=== PATIENT | female | born 1970 ===

== ENCOUNTER 2020-04-26 15:14 | Outpatient (REF) | payer OTHER, SELFPAY ==
--- NOTE | ~2020-04-26 | MM_ITS ---
EXAMINATION: MM SCREENING DIGITAL BREAST TOMOSYNTHESIS, BILATERAL CLINICAL INFORMATION: Screening. Asymptomatic. The lifetime risk of breast cancer based on the Tyrer-Cuzick Model is 11%. COMPARISON: Mammography: 04/21/2019, 04/08/2018, 02/26/2017 TECHNIQUE: Digital breast tomosynthesis is performed in both the craniocaudal and mediolateral oblique views along with computer-aided detection (CAD). Synthesized 2D images are generated from the tomosynthesis. FINDINGS: The breasts are extremely dense, which lowers the sensitivity of mammography (ACR BI-RADS breast composition Category d). Breast tissue composition borders on heterogeneously dense. Breast parenchymal pattern is similar to prior exams. There is no significant mass or architectural abnormality or developing density. No abnormal calcifications. Skin contours are smooth. MM/MM tomosynthesis screening BI IMPRESSION: No significant changes from prior studies. ASSESSMENT: BI-RADS 1: Negative RECOMMENDATION: Routine annual mammography screening. This patient's information was entered into a reminder system with a target due date for their next mammogram.
== END 2020-04-26 15:15 | disposition home or self-care (01) ==
LOC: HO.MAMMO 15:14
PROVIDERS: PCP Internal Medicine; Visit Provider Internal Medicine
DX: Z12.31 Encounter for screening mammogram for malignant neoplasm of breast (principal)
CPT/HCPCS: 77063; 77067

== ENCOUNTER 2020-07-05 14:52 | Outpatient (REF) | payer OTHER, SELFPAY ==
[2020-07-10 00:53] LABS: HPV mRNA E6/E7 rflx Not Detected (Not Detected)
[2020-07-10 13:01] LABS: BV Int Neg Control Negative (Negative)
[2020-07-10 13:02] LABS: BV Int Pos Control Positive (Positive)
== END 2020-07-05 14:53 | disposition home or self-care (01) ==
LOC: HO.LAB 14:52
PROVIDERS: PCP Internal Medicine; Visit Provider Obstetrics & Gynecology
DX: Z01.419 Encounter for gynecological examination (general) (routine) without abnormal findings (principal); Z11.51 Encounter for screening for human papillomavirus (HPV)
CPT/HCPCS: 87480; 87510; 87624; 87660; 88142

== ENCOUNTER 2020-08-09 17:36 | Outpatient (REF) | payer OTHER, SELFPAY ==
[2020-08-10 12:47] LABS: BV Int Neg Control Negative (Negative); BV Int Pos Control Positive (Positive)
== END 2020-08-09 17:37 | disposition home or self-care (01) ==
LOC: HO.LNP 17:36
PROVIDERS: Visit Provider Internal Medicine
DX: R79.89 Other specified abnormal findings of blood chemistry (principal); N89.8 Other specified noninflammatory disorders of vagina
CPT/HCPCS: 87480; 87510; 87660

== ENCOUNTER 2020-09-20 08:32 | Outpatient (REF) | payer OTHER, SELFPAY ==
--- NOTE | ~2020-09-20 | US_ITS ---
EXAMINATION: US ABDOMEN COMPLETE CLINICAL INFORMATION: Other specified abnormal findings of blood chemistry. COMPARISON: Ultrasound abdomen complete 12/10/2016 and 09/17/2015. TECHNIQUE: Real-time imaging of the abdominal viscera. Color Doppler exam was used. FINDINGS: PANCREAS: Normal. ABDOMINAL AORTA: The proximal, mid, and distal segments are normal in caliber. INFERIOR VENA CAVA: Visualized portions are normal. LIVER: The liver is normal in size. The liver contour is normal. Parenchymal echogenicity is normal. There are multiple small simple cysts in liver. Largest measuring 1.7 cm. There is no intrahepatic biliary duct dilatation seen. GALLBLADDER: There are multiple small gallstones in the gallbladder. No gallbladder wall thickening or pericholecystic fluid. COMMON BILE DUCT: Normal in caliber measuring 0.2 cm in diameter. RIGHT KIDNEY: Normal. No hydronephrosis. No renal calculi or focal parenchymal lesions. The kidney measures 10.4 cm in maximum dimension. LEFT KIDNEY: Normal. No hydronephrosis. No renal calculi or focal parenchymal lesions. The kidney measures 10.5 cm in maximum dimension. SPLEEN: Normal. The spleen measures 8.7 cm in maximum dimension. FREE FLUID: None. US/US abdomen complete IMPRESSION: 1. Cholelithiasis. No acute change of the gallbladder wall. No bile duct dilatation. 2. Simple hepatic cysts.
== END 2020-09-20 08:33 | disposition home or self-care (01) ==
LOC: HO.US 08:32
PROVIDERS: PCP Internal Medicine; Visit Provider Internal Medicine
DX: K76.0 Fatty (change of) liver, not elsewhere classified (principal); K21.9 Gastro-esophageal reflux disease without esophagitis; R79.89 Other specified abnormal findings of blood chemistry; N89.8 Other specified noninflammatory disorders of vagina
CPT/HCPCS: 76700

== ENCOUNTER 2021-05-30 14:59 | Outpatient (REF) | payer OTHER, SELFPAY ==
--- NOTE | ~2021-05-30 | MM_ITS ---
EXAMINATION: MM SCREENING DIGITAL BREAST TOMOSYNTHESIS, BILATERAL CLINICAL INFORMATION: Screening. Asymptomatic. The lifetime risk of breast cancer based on the Tyrer-Cuzick Model is 12%. COMPARISON: Mammography: 04/26/2020, 04/21/2019, 04/08/2018, 02/26/2017 TECHNIQUE: Digital breast tomosynthesis is performed in both the craniocaudal and mediolateral oblique views along with computer-aided detection (CAD). Synthesized 2D images are generated from the tomosynthesis. FINDINGS: The breasts are heterogeneously dense, which may obscure small masses (ACR BI-RADS breast composition Category c). Breast tissue composition borders on extremely dense. Parenchymal pattern is similar to prior studies. No developing density. There are no significant masses, abnormal calcifications, or other abnormalities. MM/MM tomosynthesis screening BI IMPRESSION: No mammographic evidence of malignancy. ASSESSMENT: BI-RADS 1: Negative RECOMMENDATION: Routine annual mammography screening. This patient's information was entered into a reminder system with a target due date for their next mammogram.
== END 2021-05-30 15:00 | disposition home or self-care (01) ==
LOC: HO.MAMMO 14:59
PROVIDERS: Visit Provider Internal Medicine
DX: Z12.31 Encounter for screening mammogram for malignant neoplasm of breast (principal)
CPT/HCPCS: 77063; 77067

== ENCOUNTER 2021-07-11 14:40 | Outpatient (REF) | payer OTHER, SELFPAY ==
[2021-07-12 13:52] LABS: BV Int Neg Control Negative (Negative); BV Int Pos Control Positive (Positive)
== END 2021-07-11 14:41 | disposition home or self-care (01) ==
LOC: HO.LAB 14:40
PROVIDERS: PCP Internal Medicine; Visit Provider Advanced Practice Midwife
DX: Z01.411 Encounter for gynecological examination (general) (routine) with abnormal findings (principal); N89.8 Other specified noninflammatory disorders of vagina; L29.2 Pruritus vulvae
CPT/HCPCS: 87480; 87510; 87660

== ENCOUNTER 2021-08-15 16:29 | Outpatient (REF) | payer OTHER, SELFPAY | END 2021-08-15 16:30 | disposition home or self-care (01) | LOC: HO.LAB 16:29 | PROVIDERS: Visit Provider Advanced Practice Midwife | DX: L29.2 Pruritus vulvae (principal); N89.8 Other specified noninflammatory disorders of vagina | CPT/HCPCS: 56605; 88305; 88312 ==

== ENCOUNTER 2022-06-05 14:41 | Outpatient (REF) | payer OTHER, SELFPAY ==
--- NOTE | ~2022-06-05 | MM_ITS ---
EXAMINATION: MM SCREENING DIGITAL BREAST TOMOSYNTHESIS, BILATERAL CLINICAL INFORMATION: Screening. Asymptomatic. The lifetime risk of breast cancer based on the Tyrer-Cuzick Model is 11.5%. COMPARISON: Mammography: May 30, 2021 and studies dating back to January 11, 2016 TECHNIQUE: Digital breast tomosynthesis is performed in both the craniocaudal and mediolateral oblique views along with computer-aided detection (CAD). Synthesized 2D images are generated from the tomosynthesis. FINDINGS: The breasts are heterogeneously dense, which may obscure small masses (ACR BI-RADS breast composition Category c). There are no significant masses, abnormal calcifications, or other abnormalities. MM/MM tomosynthesis screening BI IMPRESSION: No significant changes ASSESSMENT: BI-RADS 1: Negative RECOMMENDATION: Routine annual mammography screening. This patient's information was entered into a reminder system with a target due date for their next mammogram.
== END 2022-06-05 14:42 | disposition home or self-care (01) ==
LOC: HO.MAMMO 14:41
PROVIDERS: PCP Internal Medicine; Visit Provider Internal Medicine
DX: Z12.31 Encounter for screening mammogram for malignant neoplasm of breast (principal)
CPT/HCPCS: 77063; 77067

== ENCOUNTER 2022-07-14 07:36 | Outpatient (REF) | payer OTHER, SELFPAY ==
[2022-07-14 07:46] LABS: MANUAL DIFF FLAG NO
[2022-07-14 08:28] LABS: Basophils Percent Auto 0.6 % (0-2); Eosinophils Absolute Auto 0.1 X10*3/uL (0.0-0.4); Eosinophils Percent Auto 1.7 % (0-4); Hemoglobin 13.5 g/dl (12.0-16.0); Lymphocytes Absolute Auto 1.8 X10*3/uL (1.2-4.9); Lymphocytes Percent Auto 50.3 % (20-40); Mean Corpuscular HGB Conc 33.8 g/dl (31.0-35.0); Mean Corpuscular Hemoglobin 29.6 pg (27.0-33.0); Mean Corpuscular Volume 87.7 fL (80.0-98.0); Mean Platelet Volume 9.6 fL (9.4-12.3); Monocytes Absolute Auto 0.4 X10*3/uL (0.1-1.2); Monocytes Percent Auto 10.1 % (2-11); Neutrophils Absolute Auto 1.3 x10*3/uL (2.0-8.3); Neutrophils Percent Auto 37.3 % (45-73); Platelet Count 222 X10*3/uL (160-400); Red Blood Count 4.56 X10*6/uL (4.20-5.50); Red Cell Distribution Width 12.7 % (11.0-16.0); White Blood Count 3.6 X10*3/uL (4.8-10.8)
[2022-07-14 09:01] LABS: Alanine Aminotransferase 24 U/L (0-31); Albumin Level 4.1 g/dL (3.5-5.0); Alkaline Phosphatase 90 U/L (39-117); Anion Gap 11 (12-20); Aspartate Amino Transferase 23 U/L (5-31); Bilirubin Total 0.9 mg/dL (0.0-1.0); Blood Urea Nitrogen 9 mg/dL (9-16); Calcium 9.2 mg/dL (8.4-10.2); Carbon Dioxide 25 mmol/L (22-29); Chloride 110 mmol/L (96-108); Cholesterol 175 mg/dL; Estimated Glomerular Filt Rate > 60; Glucose Random 110 mg/dL (60-115); HDL Cholesterol 64 mg/dL; LDL Cholesterol Calculated 100 mg/dl; Sodium 142 mmol/L (135-145); Total Protein 6.7 g/dL (6.5-8.0); Triglycerides 57 mg/dL
[2022-07-14 09:31] LABS: Folate 16.3 ng/mL (> or = 4.0); Free T4 (Free Thyroxine) 1.01 ng/dL (0.71-1.85); Thyroid Stimulating Hormone 3.15 uIU/mL (0.32-4.0); Vitamin B12 526 pg/mL (200-900); Vitamin D 25-OH Total 39.2 ng/mL (>30)
== END 2022-07-14 07:37 | disposition home or self-care (01) ==
LOC: HO.LAB 07:36
PROVIDERS: PCP Internal Medicine; Visit Provider Internal Medicine
DX: K21.9 Gastro-esophageal reflux disease without esophagitis (principal); E78.00 Pure hypercholesterolemia, unspecified; E55.9 Vitamin D deficiency, unspecified
CPT/HCPCS: 36415; 80053; 80061; 82306; 82607; 82746; 84439; 84443; 85025

== ENCOUNTER 2022-07-17 15:22 | Outpatient (REF) | payer OTHER, SELFPAY ==
--- NOTE | ~2022-07-17 | XR_ITS ---
EXAMINATION: XR SHOULDER, RIGHT CLINICAL INFORMATION: Sprain COMPARISON: None available. TECHNIQUE: AP external rotation, Grashey, scapular Y, and axillary views of the right shoulder. FINDINGS: The bones and soft tissues are normal. No fracture. Glenohumeral and acromioclavicular alignment is anatomic with normal joint space. No abnormal soft tissue calcifications. XR/XR shoulder RT min 2V IMPRESSION: Normal right shoulder.
== END 2022-07-17 15:23 | disposition home or self-care (01) ==
LOC: HO.XRAY 15:22
PROVIDERS: PCP Internal Medicine; Visit Provider Internal Medicine
DX: S43.401A Unspecified sprain of right shoulder joint, initial encounter (principal); X58.XXXA Exposure to other specified factors, initial encounter; Y93.9 Activity, unspecified; Y92.9 Unspecified place or not applicable; Y99.9 Unspecified external cause status
CPT/HCPCS: 73030

== ENCOUNTER 2022-10-13 13:58 | Outpatient (AMB) | payer OTHER, SELFPAY ==
--- NOTE | 2022-10-13 14:02 | MHC.OFFVIS ---
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 Scribed for PAULA Morrell by Mary Saunders medical support specialist, on 10/13/2022 at 2:25 pm EST. Incendiary Powder Mixer Required: No Information Interpreted: non-clinical & clinical Laborer High Density Press: Laborer High Density Press Present (Manda) Allergies No Known Allergies Allergy (Verified 10/13/22 14:08) Is last menstrual period known: No Post menopausal: Yes Patient : No HPI HPI Comments History of Present Illness Details She is a postmenopausal woman presenting for annual exam. Patient admits she tries to eat a healthy diet including Calcium and Vitamin D. She stays active with exercise. Denies vaginal itching and irritation. Reports using Rx hydrocortisone daily on a small patch on vulvar for itch/irritation due to lichen sclerosus and if she does not use it the area starts burning. Denies family hx of breast, colon and ovarian cancer. Last pap smear 07/05/20. Last mammogram 06/05/22. Not UTD on colonoscopy. [facility] Medical History Cholelithiasis Fatty liver GERD (gastroesophageal reflux disease) Lichen sclerosus Migraines Shingles Surgical History No pertinent past surgical history Family History Son Acute depression Mother Diabetes Brother Diabetes Other Mental health disorder Substance use disorder Social History Housing: House Alcohol intake: never Patient Tobacco Use Status: Never used Tobacco e-Cigarette/Vaping Use: Never Used Second Hand Smoke Exposure: No service: No Current occupational status: employed Gender identity: Female Cognitive needs: No Hearing needs: No Vision needs: Yes Female Reproductive History Menstrual control method: none Total pregnancies: 0 Number of Living Children: 0 Date of last pap smear: 07/05/20 (neg pap and hpv) Date of Mammogram: 06/05/22 (Birad 1) Physical Exam Vital Signs: Last Vital Signs BP 130/80 10/13/22 14:03 BMI result Body Mass Index 31.3 Const General: cooperative, healthy appearing, no acute distress, well developed and alert Orientation/consciousness: patient oriented x3 HEENT Head: Yes normal to inspection Eyes General: appearance normal, both eyes and all related structures Neck Neck: Yes normal visual inspection Thyroid: Thyroid normal Chest Chest palpation & inspection: normal inspection of the chest Breast/axilla inspection: normal inspection of the breasts (no puckering, dimpling, peau de orange, retraction, discharge, masses) Breast/axilla palpation: normal palpation of the breasts Resp Effort & Inspection: normal respiratory effort GI Inspection: Yes normal to inspection Palpation (GI): Soft to palpation (to palpation) Rectal Exam - Female: deferred General: Yes bladder normal to inspection External Female Exam: normal external appearance and normal appearance of the urethra Speculum Exam - Vagina: normal appearance of the vagina, normal palpation and normal vaginal discharge Speculum Exam - Cervix: normal appearance of the cervix and normal palpation Bimanual exam- vagina & uterus: normal palpation and normal palpation Bimanual Exam- Adnexa, other: normal adnexae and no masses Skin General skin exam: no rashes or lesions noted Neuro General: patient oriented x3 Cognition (Neuro): normal cognition Extrem General: Yes normal to inspection Psych Attitude: cooperative Thought process: Normal thought process present Assessment & Plan Assessment & Plan (1) Encounter for well woman exam: Code(s): Z01.419 - Encounter for gynecological examination (general) (routine) without abnormal findings Plan: Discussed: Current recommendations for pap smears per ASCCP guidelines. Breast awareness and periodic self breast exams. Encouraged yearly mammograms. Maintaining a healthy lifestyle including a well balanced diet including Calcium and Vitamin D and routine exercise. Contact office with any PMB. All of her questions and concerns were addressed to the best of my ability RTO in 1 year for AG. (2) Lichen sclerosus: Code(s): L90.0 - Lichen sclerosus et atrophicus Plan: Discussed topical steroid overuse and rebound symptoms. Taper dose to be started as directed with refill. If any burning apply cool cloth to area when irritated, and wear cotton underwear. Rx with instructions sent to pharmacy. Contact office if symptoms worsen, follow up prn. (3) Vaginal irritation: Code(s): N89.8 - Other specified noninflammatory disorders of vagina Medications: New hydrocortisone valerate 0.2% apply a thin coat to the area daily at bedtime for one week, then every other day for two weeks, then twice a week, then only twice a week prn 1 appl topical BEDTIME 45 grams 2RF rash Discontinued hydrocortisone valerate 0.2% Discontinued Reason: Duplicate 1 appl topically twice per week PRN; 45 grams 3RF rash Coding Level of Care Code Est Pt Prev Care 40-64y(92581) Diagnoses Encounter for well woman exam Z01.419 Lichen sclerosus L90.0 Vaginal irritation N89.8
[2022-10-13 14:03] VITALS: BP 130/80; BMI 31.3
== END 2022-10-13 14:37 | disposition home or self-care (01) ==
LOC: HO.HWS 13:58
PROVIDERS: PCP Internal Medicine; Visit Provider Advanced Practice Midwife
DX: Z01.419 Encounter for gynecological examination (general) (routine) without abnormal findings (principal); L90.0 Lichen sclerosus et atrophicus; N89.8 Other specified noninflammatory disorders of vagina
CPT/HCPCS: 99396

== ENCOUNTER → 2022-10-13 13:58 | Outpatient (BNVA) | payer OTHER, SELFPAY | PROVIDERS: PCP Internal Medicine; Visit Provider Advanced Practice Midwife ==

== ENCOUNTER 2022-12-18 15:00 | Outpatient (RCR) | payer OTHER, SELFPAY ==
--- NOTE | 2022-08-14 16:11 | MHC.PT.EP ---
[facility] [place] Office [place] Office [place] Office [address] Chalino Rice [address] [phone] F: [phone] F: [phone] F: [phone] F: [phone] Physical Therapy Plan of Care Date of Evaluation: Date of Surgery: Diagnosis: RIGHT shoulder sprain (MD Dx) RIGHT subacromial impingement syndrome (PT Dx) Assessment: Patient is a pleasant 52 y.o. 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 Ariel Harding MD, with Dx of RIGHT shoulder sprain. PT diagnosis is RIGHT shoulder subacromial impingement syndrome. Patient impairments include pain, poor posture, tight shoulder capsule, limited ROM, mild weakness. Patient current functional limitations are reach behind back, reach too far forward, reaching out to the side, reaching overhead.Patient will benefit from skilled PT to address aforementioned impairments and functional limitations to meet established goals. Frequency and Duration: The patient will be seen 1-2x/week for 4 weeks Short Term Goals: 2 weeks Patient demonstrates consistency and independence with HEP to self manage symptoms. Patient presents with improved posture in sitting without cues for neutral cervical spine and shoulders. 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 Patient presents with increased R shoulder abduction 5/5 to be able to reach items at work without pain or difficulty. Treatment Plan: Modalities to reduce pain, spasms and effusion. Manual therapy to restore motion and function. Therapeutic exercise to improve strength and flexibility. Neuromuscular re-education for posture and balance. Therapeutic activities to return to functional activities of daily living. Electronically signed by: Candace Terry, PT, DPT Please sign and return to therapist. Thank you for your referral.
--- NOTE | 2023-01-21 10:41 | MHC.PT.DC ---
[facility] [place] Office [place] Office [place] Office [address] Chalino Rice [address] [phone] F: [phone] F: [phone] F: [phone] F: [phone] Physical Therapy Discharge Report Diagnosis: RIGHT shoulder sprain (MD Dx) RIGHT subacromial impingement syndrome (PT Dx) Date of Surgery: Date of Evaluation: 08/14/22 Date of Discharge: 12/18/22 Treatments to Date: 15 Cancellations to Date: No Shows to Date: Discharge Status: Achieved Goals Improved Function Independent with HEP Discharge Summary: Pt has met all goals at this time, has demonstrated compliance with home program and good mechanics throughout all exercises. Decreased overall pain levels with ADLs and decreased difficulty with home/work activities. D/C I with HEP today Electronically signed by: Candace Terry, PT, DPT Please sign and return to therapist. Thank you for your referral.
== END 2023-01-21 10:42 | disposition home or self-care (01) ==
LOC: HO.PT 15:00
PROVIDERS: PCP Internal Medicine; Visit Provider Internal Medicine
DX: S43.401D Unspecified sprain of right shoulder joint, subsequent encounter (principal)
CPT/HCPCS: 97014; 97035; 97110; 97140; 97161; 97530

== ENCOUNTER 2023-06-11 15:00 | Outpatient (REF) | payer BC, SELFPAY | END 2023-06-11 15:01 | disposition home or self-care (01) | LOC: HO.MAMMO 15:00 | PROVIDERS: PCP Internal Medicine; Visit Provider Internal Medicine | DX: Z12.31 Encounter for screening mammogram for malignant neoplasm of breast (principal) | CPT/HCPCS: 77063; 77067 ==

== ENCOUNTER → 2023-06-11 15:00 | Outpatient (BNV) | payer BC, SELFPAY | PROVIDERS: PCP Internal Medicine; Visit Provider Radiology Diagnostic Radiology | DX: Z12.31 Encounter for screening mammogram for malignant neoplasm of breast (principal) | CPT/HCPCS: 77063; 77067 ==

== ENCOUNTER 2023-09-03 16:05 | Outpatient (AMB) | payer BC, SELFPAY ==
[2023-09-03 16:15] VITALS: BP 118/68; PULSE 69; O2SAT 98; BMI 33.7
--- NOTE | 2023-09-03 16:15 | A.OFFPC_ITS ---
Vital Signs 09/03/23 16:15 Height 5 ft 6 in Weight 209 lb BMI 33.7 BP 118/68 Blood Pressure Location Lt brachial Position Sitting Pulse 69 Pulse Source Pulse Oximeter Pulse Oximetry (%) 98 Oxygen Delivery Method Room Air Intake Visit Reasons: pe Allergies No Known Allergies Allergy (Verified 09/03/23 16:15) Medication List - Last Reconciled 09/03/23 by Ban Travis MD calcium carbonate 500 mg PO BID cholecalciferol (vitamin D3) 10 mcg PO DAILY cyanocobalamin (vitamin B-12) 500 mcg PO DAILY hydrocortisone valerate 0.2% 1 appl topical BEDTIME multivitamin (Daily Multi-Vitamin tablet) 1 tab PO DAILY omega 4-zyr-xea-fish oil 60-90-500 mg (Fish Oil) 2 caps PO DAILY Tobacco use date assessed: 09/03/23 Dental Screening Dental Screen Date: 09/03/23 Did you have a dental visit in the last 12 months?: Yes Did you have a dental problem in the last 6 months where you did not have access to dental care?: No Was dental information given to patient?: Patient has dentist HPI pe HPI Details 53-year-old obese female(15 lb weight ga in) with a history of fatty liver GERD and impaired glucose tolerance last seen in August 2022. Patient is here for physical exam mammogram is up-to-date colonoscopy up-to-date 2018 [facility] Medical History Cholelithiasis Fatty liver GERD (gastroesophageal reflux disease) Lichen sclerosus Migraines Shingles Surgical History No pertinent past surgical history Family History (Updated 09/03/23 @ 16:30 by Ban Travis MD) Son Acute depression Mother Diabetes Brother Diabetes Maternal Grandfather No problems noted. Maternal Uncle CVA (cerebral vascular accident) Other Mental health disorder Substance use disorder Social History Housing: House Alcohol intake: never Patient Tobacco Use Status: Never used Tobacco Tobacco use type: Cigarette e-Cigarette/Vaping Use: Never Used Second Hand Smoke Exposure: No service: No Current occupational status: employed Gender identity: Female Cognitive needs: No Hearing needs: No Vision needs: Yes Questionnaire PHQ-9 Over the last 2 weeks, how often have you been bothered by any of the following problems? 1. Little interest or pleasure in doing things: not at all 2. Feeling down, depressed, or hopeless: not at all 3. Trouble falling or staying asleep, or sleeping too much: not at all 4. Feeling tired or having little energy: not at all 5. Poor appetite or overeating: not at all 6. Feeling bad about yourself - or that you are a failure or have let yourself or your family down: not at all 7. Trouble concentrating on things, such as reading the newspaper or watching television: not at all 8. Moving or speaking so slowly that other people could have noticed. Or the opposite - being so fidgety or restless that you have been moving around a lot more than usual: not at all 9. Thoughts that you would be better off or of hurting yourself in some way: not at all Total score: 0 Depression Screening Interpretation: Negative Depression Screening Done: Yes Source: Developed by Drs. Mejia Garcia, Shania Kinney, Anurag Aleman and colleagues, with an educational stas from [employer]. Thrive Questionnaire Date Thrive assessed: 09/03/23 I am a: Patient What is your living situation today?: I have a steady place to live Within the past 12 months, did the food you bought not last and you didn't have the money to get more?: Never true Within the past 12 months, did you worry whether your food would run out before you got money to buy more?: Never true Do you have trouble paying for medicines?: No Do you have trouble getting transportation to medical appointments?: No Do you have trouble paying your heating and electricity bill?: No Do you have trouble taking care of your child, family member or friend?: No Do you have trouble with day-to-day activities such as bathing, preparing meals, shopping, managing finances, etc.?: No Are you currently unemployed and looking for a job?: No Are you interested in more education?: No Currently or been in a relationship where the following occur: No concerns reported THRIVE Score: 0 AUDIT C Alcohol Use Questionnaire (AUDIT-C) 1. How often do you have a drink containing alcohol?: Never Total Score: 0 TITA-7 AMB Questionnaire TITA-7 Date TITA - 7 assessed: 09/03/23 Feeling nervous, anxious, or on edge: 0 = Not at all Not being able to stop or control worryin = Not at all Worrying too much about different things: 0 = Not at all Trouble relaxin = Not at all Being so restless that it is hard to sit still: 0 = Not at all Becoming easily annoyed or irritable: 0 = Not at all Feeling afraid as if something awful might happen: 0 = Not at all Total TITA-7 score (0-4 normal; 5-9 mild; 10-14 moderate; 15-21 severe): 0 Source: Developed by Drs. Mejia Garcia, Shania Kinney, Anurag Aleman and colleagues, with an educational stas from [employer]. Review of Systems Const Denies poor appetite and Denies weakness Eyes Denies no additional complaints ENT Reports Normal hearing present, Denies dizziness, Denies nasal congestion, Denies tinnitus and Denies sore throat Card Denies chest pain, Denies syncope, Denies rapid heart rate and Denies dyspnea Resp Denies cough and Denies dyspnea GI Denies change in stool character, Reports constipation, Denies diarrhea, Denies nausea and Denies vomiting Denies urinary frequency, Denies difficulty voiding and Denies dysuria Neuro Reports Normal hearing present, Denies confusion, Denies dizziness, Denies syncope and Denies weakness Psych Denies confusion Physical exam (Primary Care) Vital Signs: Last Vital Signs Pulse 69 09/03/23 16:15 BP 118/68 09/03/23 16:15 Pulse Ox 98 09/03/23 16:15 Oxygen Delivery Method Room Air 09/03/23 16:15 BMI result Body Mass Index 33.7 Tobacco/Smoking Status: Tobacco use Status Tobacco use date assessed 09/03/23 09/03/23 16:20 Patient Tobacco Use Status Never used Tobacco 09/03/23 16:20 Tobacco use type Cigarette 09/03/23 16:20 e-Cigarette/Vaping Use Never Used 09/03/23 16:20 PHQ-9: PHQ-9 Score PHQ-9: Total score 0 09/03/23 16:20 Depression Screening Interpretation: Negative Thrive Assessment: Date of Thrive Assessment Date Thrive assessed 09/03/23 09/03/23 16:20 Currently or been in a relationship where the following occur: No concerns reported Const General: No confusion Orientation/consciousness: No confusion HENMT Head: Yes normocephalic Ears: external ears normal and TM's normal bilaterally Face and sinus: Yes normal facial exam Mouth: moist mucous membranes Throat: Yes tonsils normal Eyes Conjunctivae: conjunctivae normal Pupils: Equal, round and reactive pupils present and Pupil accommodation reflex normal Direct Ophthalmoscopy: normal light reflex Neck Neck: No lymphadenopathy Thyroid: Thyroid normal Chest Chest palpation & inspection: normal inspection of the chest Resp Effort & Inspection: normal respiratory effort and no audible wheezes Auscultation: clear to auscultation bilaterally, no crackles, no wheezes and lung sounds not diminished Cardio Rate: regular rate Rhythm: regular rhythm Peripheral pulses: radial pulses present and dorsalis pedis present GI Palpation (GI): no masses Auscultation: normal bowel sounds and normoactive bowel sounds Rectal Exam - Female: deferred Skin General skin exam: no rashes or lesions noted Rashes: no rashes Neuro General: No confusion Cranial nerves: Yes Equal, round and reactive pupils present and Yes Normal hearing present Cognition (Neuro): normal cognition Gait exam (Neuro): Normal gait present Motor exam (neuro): 5/5 motor strength present throughout Deep tendon reflexes (DTR's): Right brachioradialis reflex intensity grade: 2+, Left brachioradialis reflex intensity grade: 2+, Right patellar reflex intensity grade: 2+ and Left patellar reflex intensity grade: 2+ Extrem General: No edema Assessment and Plan Assessment & Plan (1) Annual physical exam: Code(s): Z00.00 - Encounter for general adult medical examination without abnormal findings Plan: Patient is advised to eat healthy, keep well hydrated, keep active and have adequate sleep. (2) GERD (gastroesophageal reflux disease): Code(s): K21.9 - Gastro-esophageal reflux disease without esophagitis Qualifiers: Esophagitis presence: without esophagitis Qualified Code(s): K21.9 - Gastro-esophageal reflux disease without esophagitis Plan: Avoid the foods that causes that usually spicy foods, tomato products, juices, coffee, soda and foods that your sensitive to. After eating do not lie down, allow 3-4 hours before in lie down. And keep the head of bed above 30 degrees to avoid the acid from going up. (3) Fatty liver: Code(s): K76.0 - Fatty (change of) liver, not elsewhere classified Plan: Low-fat diet and exercise (4) Impaired glucose tolerance: Code(s): R73.02 - Impaired glucose tolerance (oral) Plan: Decrease the amount of carbohydrate intake, pasta, bread, rice and potatoes are all sugar and that is aside from all the sweet stuff, remember that fruits are good but they are Sweet also. (5) Obesity (BMI 30-39.9): Code(s): E66.9 - Obesity, unspecified Plan: Diet and exercise Orders: Orders Complete Blood Count Auto Diff Today R73.02 - Impaired glucose tolerance (oral) Comprehensive Met. Panel Today R73.02 - Impaired glucose tolerance (oral) Free T4 (Free Thyroxine) Today R73.02 - Impaired glucose tolerance (oral) Vitamin D 25-OH Total Today R73.02 - Impaired glucose tolerance (oral) Hemoglobin A1c Today R73.02 - Impaired glucose tolerance (oral) Thyroid Stimulating Hormone Today R73.02 - Impaired glucose tolerance (oral) Liver Panel Today R73.02 - Impaired glucose tolerance (oral), R79.89 - Other specified abnormal findings of blood chemistry Vitamin B12 and Folate Today R73.02 - Impaired glucose tolerance (oral) Coding Level of Care Code Est Pt Prev Care 40-64y(12939) Diagnoses Annual physical exam Z00.00 Gastroesophageal reflux disease without esophagitis K21.9 Esophagitis presence: without esophagitis Fatty liver K76.0 Impaired glucose tolerance R73.02 Obesity (BMI 30-39.9) E66.9
== END 2023-09-03 16:45 | disposition home or self-care (01) ==
PROVIDERS: PCP Internal Medicine; Visit Provider Internal Medicine
DX: Z00.00 Encounter for general adult medical examination without abnormal findings (principal); K21.9 Gastro-esophageal reflux disease without esophagitis; Z68.33 Body mass index [BMI] 33.0-33.9, adult; E66.9 Obesity, unspecified; K76.0 Fatty (change of) liver, not elsewhere classified; R73.02 Impaired glucose tolerance (oral)
CPT/HCPCS: 99396

== ENCOUNTER 2023-09-06 07:24 | Outpatient (REF) | payer BC, SELFPAY ==
[2023-09-06 07:40] LABS: MANUAL DIFF FLAG NO
[2023-09-06 08:08] LABS: Basophils Percent Auto 0.7 % (0-2); Eosinophils Absolute Auto 0.1 X10*3/uL (0.0-0.4); Eosinophils Percent Auto 2.2 % (0-4); Hematocrit 42.2 % (37.0-47.0); Hemoglobin 14.2 g/dl (12.0-16.0); Lymphocytes Absolute Auto 1.9 X10*3/uL (1.2-4.9); Lymphocytes Percent Auto 47.3 % (20-40); Mean Corpuscular HGB Conc 33.6 g/dl (31.0-35.0); Mean Corpuscular Hemoglobin 29.7 pg (27.0-33.0); Mean Corpuscular Volume 88.3 fL (80.0-98.0); Mean Platelet Volume 9.9 fL (9.4-12.3); Monocytes Absolute Auto 0.3 X10*3/uL (0.1-1.2); Monocytes Percent Auto 8.3 % (2-11); Neutrophils Absolute Auto 1.7 x10*3/uL (2.0-8.3); Neutrophils Percent Auto 41.5 % (45-73); Platelet Count 230 X10*3/uL (160-400); Red Blood Count 4.78 X10*6/uL (4.20-5.50); Red Cell Distribution Width 12.7 % (11.0-16.0); White Blood Count 4.1 X10*3/uL (4.8-10.8)
[2023-09-06 08:14] LABS: Estimated Average Glucose 114 mg/dL; Hemoglobin A1c % 5.6 % (<6.0)
[2023-09-06 08:40] LABS: Alanine Aminotransferase 22 U/L (0-31); Albumin Level 4.3 g/dL (3.5-5.0); Alkaline Phosphatase 117 U/L (39-117); Anion Gap 11 (12-20); Aspartate Amino Transferase 22 U/L (5-31); Bilirubin Direct 0.2 mg/dL (0.0-0.5); Bilirubin Total 0.4 mg/dL (0.0-1.0); Blood Urea Nitrogen 10 mg/dL (9-16); Calcium 8.9 mg/dL (8.4-10.2); Carbon Dioxide 26 mmol/L (22-29); Chloride 109 mmol/L (96-108); Estimated Glomerular Filt Rate > 60; Glucose Random 119 mg/dL (60-115); Potassium 4.4 mmol/L (3.3-5.1); Sodium 142 mmol/L (135-145); Total Protein 7.2 g/dL (6.5-8.0)
[2023-09-06 08:59] LABS: Free T4 (Free Thyroxine) 0.88 ng/dL (0.71-1.85); Thyroid Stimulating Hormone 3.32 uIU/mL (0.32-4.0); Vitamin D 25-OH Total 44.6 ng/mL (>30)
[2023-09-06 09:03] LABS: Folate 13.2 ng/mL (> or = 4.0); Vitamin B12 1302 pg/mL (200-900)
== END 2023-09-06 07:25 | disposition home or self-care (01) ==
LOC: HO.LAB 07:24
PROVIDERS: PCP Internal Medicine; Visit Provider Internal Medicine
DX: R73.02 Impaired glucose tolerance (oral) (principal); R79.89 Other specified abnormal findings of blood chemistry
CPT/HCPCS: 36415; 80053; 82248; 82306; 82607; 82746; 83036; 84439; 84443; 85025

== ENCOUNTER 2023-10-18 16:49 | Outpatient (AMB) | payer BC, SELFPAY ==
--- NOTE | 2023-10-18 16:51 | A.OFFPC_ITS ---
Intake Visit Reasons: COVID Pos Allergies No Known Allergies Allergy (Verified 10/18/23 16:51) Tobacco use date assessed: 09/03/23 Dental Screening Dental Screen Date: 09/03/23 HPI COVID Pos HPI Details 53-year-old obese female with a history of GERD and fatty liver and impaired glucose tolerance coming in through Telehealth for an acute problem. had sore throat and run down but today patient had no sense of taste and smell and so did the test and was positive [facility] Medical History Cholelithiasis Fatty liver GERD (gastroesophageal reflux disease) Lichen sclerosus Migraines Shingles Surgical History No pertinent past surgical history Family History (Updated 09/03/23 @ 16:30 by Ban Travis MD) Son Acute depression Mother Diabetes Brother Diabetes Maternal Grandfather No problems noted. Maternal Uncle CVA (cerebral vascular accident) Other Mental health disorder Substance use disorder Social History Housing: House Alcohol intake: never Patient Tobacco Use Status: Never used Tobacco Tobacco use type: Cigarette e-Cigarette/Vaping Use: Never Used Second Hand Smoke Exposure: No service: No Current occupational status: employed Gender identity: Female Cognitive needs: No Hearing needs: No Vision needs: Yes Questionnaire Thrive Questionnaire Date Thrive assessed: 09/03/23 TITA-7 AMB Questionnaire TITA-7 Date TITA - 7 assessed: 09/03/23 Source: Developed by Drs. Mejia Garcia, Shania Kinney, Anurag Aleman and colleagues, with an educational stas from [employer]. Physical exam (Primary Care) Tobacco/Smoking Status: Tobacco use Status Tobacco use date assessed 09/03/23 10/18/23 16:51 Patient Tobacco Use Status Never used Tobacco 10/18/23 16:51 Tobacco use type Cigarette 10/18/23 16:51 e-Cigarette/Vaping Use Never Used 10/18/23 16:51 Thrive Assessment: Date of Thrive Assessment Date Thrive assessed 09/03/23 10/18/23 16:51 Telehealth Telehealth Telehealth Platform: Telephone Location of provider rendering services: practice address Location of patient: address on file Patient Identification confirmed using: Name, : Yes Telehealth method: voice only Patient verbally consented to treatment: Yes Patient verbally consented to billing insurance company: Yes Patient informed of any privacy concerns related to visit: Yes Minutes spent on Phone/Video with Pt.: 15 Assessment and Plan Assessment & Plan (1) Impaired glucose tolerance: Code(s): R73.02 - Impaired glucose tolerance (oral) Plan: Decrease the amount of carbohydrate intake, pasta, bread, rice and potatoes are all sugar and that is aside from all the sweet stuff, remember that fruits are good but they are Sweet also. (2) COVID-19 virus infection: Comment: 10/18/2023 Code(s): U07.1 - COVID-19 Plan: Antiviral has been sent. For the sore throat can take Cepacol lozenges, discussed about Delsym to help with dry cough so she can rest and advised to increase oral fluids. Patient also can take Tylenol for chills and fever. Concern though of coverage as she heard the insurance might not be covering it. Coding Level of Care Code Tele Est Pt Level 3 (24938) Diagnoses Impaired glucose tolerance R73.02 COVID-19 virus infection U07.1
== END 2023-10-18 17:09 | disposition home or self-care (01) ==
LOC: HO.HMGH 16:49
PROVIDERS: PCP Internal Medicine; Visit Provider Internal Medicine
DX: U07.1 COVID-19 (principal); R73.02 Impaired glucose tolerance (oral)
CPT/HCPCS: 99442

== ENCOUNTER 2023-12-31 14:37 | Outpatient (AMB) | payer BC, SELFPAY ==
--- NOTE | 2023-12-31 14:43 | MHC.OFFVIS ---
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 She is doing well with no concerns. Needs refill on her topical cortisone for lichen sclerosus treatment. Attempting to eat a healthy diet with calcium and vitamin D and stays active with exercise. Currently not sexually active. STI testing offered; she declined. Last pap smear; 2020. Last mammogram; 2023. Colonoscopy is UTD. Denies any family history of breast, ovarian or colon cancer. [facility] Medical History Lichen sclerosus Shingles Migraines Fatty liver Cholelithiasis GERD (gastroesophageal reflux disease) Surgical History No pertinent past surgical history Family History Son Acute depression Mother Diabetes Brother Diabetes Maternal Grandfather No problems noted. Maternal Uncle CVA (cerebral vascular accident) Other Mental health disorder Substance use disorder Social History Housing: House Alcohol intake: never Patient Tobacco Use Status: Never used Tobacco Tobacco use type: Cigarette e-Cigarette/Vaping Use: Never Used Second Hand Smoke Exposure: No service: No Current occupational status: employed Gender identity: Female Cognitive needs: No Hearing needs: No Vision needs: Yes Female Reproductive History Menstrual Menopause type: natural Total pregnancies: 0 Date of last pap smear: 07/05/20 (neg pap and hpv) Date of Mammogram: 06/11/23 (Birad 1) Review of Systems Const All systems reviewed & are unremarkable except as noted in HPI and below Reports as per HPI Eyes Reports no additional complaints ENT Reports no additional complaints Card Reports no additional complaints Resp Reports no additional complaints GI Reports as per HPI and Reports no additional complaints Reports as per HPI Musc Reports no additional complaints Skin/Breast Reports as per HPI Neuro Reports no additional complaints Psych Reports no additional complaints Endo Reports no additional complaints Jalen/Lymph Reports no additional complaints Aller/Immun Reports no additional complaints Physical Exam Vital Signs: BMI result Body Mass Index 32.0 Const General: cooperative, healthy appearing, no acute distress, well developed and alert Orientation/consciousness: patient oriented x3 HEENT Head: Yes normal to inspection Eyes General: appearance normal, both eyes and all related structures Neck Neck: Yes normal visual inspection Thyroid: Thyroid normal Chest Chest palpation & inspection: normal inspection of the chest and other (no puckering, dimpling, peau de orange, retraction, discharge, masses) Breast/axilla inspection: normal inspection of the breasts Breast/axilla palpation: normal palpation of the breasts Resp Effort & Inspection: normal respiratory effort GI Inspection: Yes normal to inspection Palpation (GI): Soft to palpation Rectal Exam - Female: deferred General: Yes bladder normal to palpation External Female Exam: normal external appearance and normal appearance of the urethra Speculum Exam - Vagina: normal appearance of the vagina, normal palpation, normal vaginal discharge and vagina atrophic Speculum Exam - Cervix: normal appearance of the cervix and normal palpation Bimanual exam- vagina & uterus: normal bimanual exam, normal palpation, uterine size normal, bladder normal to palpation, normal palpation and non-tender Bimanual Exam- Adnexa, other: no masses Skin General skin exam: no rashes or lesions noted Rashes: no rashes Neuro General: patient oriented x3 Cognition (Neuro): normal cognition Extrem General: Yes normal to inspection Psych Attitude: cooperative Thought process: Normal thought process present Assessment & Plan Assessment & Plan (1) Encounter for well woman exam with routine gynecological exam: Code(s): Z01.419 - Encounter for gynecological examination (general) (routine) without abnormal findings Category: Medical Plan Discussed: Current recommendations for pap smears per ASCCP guidelines. Breast awareness, periodic self breast exams and yearly mammogram. Maintain a healthy lifestyle, well balanced diet including Calcium 1,200 mg and Vitamin D 600 IU daily, and routine exercise. Contact the office with any postmenopausal bleeding. Patient verbalizes understanding and agrees to the plan of care. She was given opportunity to ask questions and all questions were answered to the best of my ability. 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 This note is constructed using voice recognition software. While every effort has been made to ensure accuracy, truckload checker errors may have been included. Medications: Refilled hydrocortisone valerate 0.2% apply a thin coat to the area daily at bedtime for one week, then every other day for two weeks, then twice a week, then only twice a week prn 1 appl topical BEDTIME 45 grams 2RF rash Coding Level of Care Code Est Pt Prev Care 40-64y(53595) Diagnoses Encounter for well woman exam with routine gynecological exam Z01.419
[2023-12-31 14:44] VITALS: BMI 32.0
== END 2023-12-31 15:30 | disposition home or self-care (01) ==
PROVIDERS: PCP Internal Medicine; Visit Provider Advanced Practice Midwife
DX: Z01.419 Encounter for gynecological examination (general) (routine) without abnormal findings (principal)
CPT/HCPCS: 99396

== ENCOUNTER → 2023-12-31 14:37 | Outpatient (BNVA) | payer BC, SELFPAY | PROVIDERS: PCP Internal Medicine; Visit Provider Advanced Practice Midwife ==

== ENCOUNTER 2024-06-16 14:56 | Outpatient (REF) | payer BC, SELFPAY | END 2024-06-16 14:57 | disposition home or self-care (01) | LOC: HO.MAMMO 14:56 | PROVIDERS: PCP Internal Medicine; Visit Provider Internal Medicine | DX: Z12.31 Encounter for screening mammogram for malignant neoplasm of breast (principal) | CPT/HCPCS: 77063; 77067 ==

== ENCOUNTER → 2024-06-16 15:30 | Outpatient (BNV) | payer BC, SELFPAY | PROVIDERS: PCP Internal Medicine; Visit Provider Internal Medicine | DX: Z12.31 Encounter for screening mammogram for malignant neoplasm of breast (principal) | CPT/HCPCS: 77063; 77067 ==

== ENCOUNTER 2024-09-08 14:50 | Outpatient (AMB) | payer BC, SELFPAY ==
[2024-09-08 14:58] VITALS: BP 114/70; PULSE 92; TEMP 36.3; O2SAT 97; BMI 33.0
--- NOTE | 2024-09-08 14:58 | MHC.PC.OV ---
Vital Signs 09/08/24 14:58 Height 5 ft 6 in Weight 204 lb 4 oz BMI 33.0 BP 114/70 Blood Pressure Location Lt brachial Position Sitting Pulse 92 Pulse Source Pulse Oximeter Temp 97.3 F Temp Source Temporal Artery Scan Pulse Oximetry (%) 97 Oxygen Delivery Method Room Air Intake Visit Reasons: Annual Exam Allergies No Known Allergies Allergy (Verified 09/08/24 15:00) Medication List - Last Reconciled 09/08/24 by Ban Travis MD calcium carbonate 500 mg PO BID cholecalciferol (vitamin D3) 10 mcg PO DAILY cyanocobalamin (vitamin B-12) 500 mcg PO DAILY hydrocortisone valerate 0.2% 1 appl topical BEDTIME PRN 21 days multivitamin (Daily Multi-Vitamin tablet) 1 tab PO DAILY Tobacco use date assessed: 09/08/24 Dental Screening Dental Screen Date: 09/08/24 Did you have a dental visit in the last 12 months?: Yes Did you have a dental problem in the last 6 months where you did not have access to dental care?: No Was dental information given to patient?: Patient has dentist [facility] Medical History Lichen sclerosus Shingles Migraines Fatty liver Cholelithiasis GERD (gastroesophageal reflux disease) Surgical History No pertinent past surgical history Family History Son Acute depression Mother Diabetes Brother Diabetes Maternal Grandfather No problems noted. Maternal Uncle CVA (cerebral vascular accident) Other Mental health disorder Substance use disorder Social History Housing: House Alcohol intake: never Patient Tobacco Use Status: Never used Tobacco Tobacco use type: Cigarette e-Cigarette/Vaping Use: Never Used Second Hand Smoke Exposure: No service: No Current occupational status: employed Gender identity: Female Cognitive needs: No Hearing needs: No Vision needs: Yes Questionnaire PHQ-9 Over the last 2 weeks, how often have you been bothered by any of the following problems? 1. Little interest or pleasure in doing things: not at all 2. Feeling down, depressed, or hopeless: not at all 3. Trouble falling or staying asleep, or sleeping too much: not at all 4. Feeling tired or having little energy: not at all 5. Poor appetite or overeating: not at all 6. Feeling bad about yourself - or that you are a failure or have let yourself or your family down: not at all 7. Trouble concentrating on things, such as reading the newspaper or watching television: not at all 8. Moving or speaking so slowly that other people could have noticed. Or the opposite - being so fidgety or restless that you have been moving around a lot more than usual: not at all 9. Thoughts that you would be better off or of hurting yourself in some way: not at all Total score: 0 Depression Screening Interpretation: Negative Depression Screening Done: Yes 18867 - PHQ-9 Billing: Yes Source: Developed by Drs. Mejia Garcia, Shania Kinney, Anurag Aleman and colleagues, with an educational stas from [email or web address]. Thrive Questionnaire Date Thrive assessed: 09/08/24 I am a: Patient What is your living situation today?: I have a steady place to live Within the past 12 months, did the food you bought not last and you didn't have the money to get more?: Never true Within the past 12 months, did you worry whether your food would run out before you got money to buy more?: Never true Do you have trouble paying for medicines?: No Do you have trouble getting transportation to medical appointments?: No Do you have trouble paying your heating and electricity bill?: No Do you have trouble taking care of your child, family member or friend?: No Do you have trouble with day-to-day activities such as bathing, preparing meals, shopping, managing finances, etc.?: No Are you currently unemployed and looking for a job?: No Are you interested in more education?: No Please select the resources that you would like help with: None Currently or been in a relationship where the following occur: No concerns reported THRIVE Score: 0 AUDIT C Alcohol Use Questionnaire (AUDIT-C) 1. How often do you have a drink containing alcohol?: Never 3. How often do you have six or more drinks on one occasion?: Never Total Score: 0 TITA-7 AMB Questionnaire TITA-7 Date TITA - 7 assessed: 09/08/24 Feeling nervous, anxious, or on edge: 0 = Not at all Not being able to stop or control worryin = Not at all Worrying too much about different things: 0 = Not at all Trouble relaxin = Not at all Being so restless that it is hard to sit still: 0 = Not at all Becoming easily annoyed or irritable: 0 = Not at all Feeling afraid as if something awful might happen: 0 = Not at all Total TITA-7 score (0-4 normal; 5-9 mild; 10-14 moderate; 15-21 severe): 0 Source: Developed by Drs. Mejia Garcia, Shania Kinney, Anurag Aleman and colleagues, with an educational stas from [email or web address]. TITA-7 Assessment Billing TITA-7 Assessment Tool: TITA-7 Assessment 73960 Review of Systems Const Denies poor appetite and Denies weakness Eyes Denies no additional complaints ENT Reports Normal hearing present, Denies dizziness, Denies nasal congestion, Denies tinnitus and Denies sore throat Card Denies chest pain, Denies syncope, Denies rapid heart rate and Denies dyspnea Resp Denies cough and Denies dyspnea GI Denies change in stool character, Reports constipation, Denies diarrhea, Denies nausea and Denies vomiting Denies urinary frequency, Denies difficulty voiding and Denies dysuria Neuro Reports Normal hearing present, Denies confusion, Denies dizziness, Denies syncope and Denies weakness Psych Denies confusion Physical exam (Primary Care) Vital Signs: Last Vital Signs Temp 97.3 F 09/08/24 14:58 Pulse 92 09/08/24 14:58 BP 114/70 09/08/24 14:58 Pulse Ox 97 09/08/24 14:58 Oxygen Delivery Method Room Air 09/08/24 14:58 BMI result Body Mass Index 33.0 Tobacco/Smoking Status: Tobacco use Status Tobacco use date assessed 09/08/24 09/08/24 15:01 Patient Tobacco Use Status Never used Tobacco 09/08/24 15:01 Tobacco use type Cigarette 09/08/24 15:01 e-Cigarette/Vaping Use Never Used 09/08/24 15:01 PHQ-9: PHQ-9 Score PHQ-9: Total score 0 09/08/24 15:30 Depression Screening Interpretation: Negative Thrive Assessment: Date of Thrive Assessment Date Thrive assessed 09/08/24 09/08/24 15:01 Currently or been in a relationship where the following occur: No concerns reported Const General: No confusion Orientation/consciousness: No confusion HENMT Head: Yes normocephalic Ears: external ears normal and TM's normal bilaterally Face and sinus: Yes normal facial exam Mouth: moist mucous membranes Throat: Yes tonsils normal Eyes Conjunctivae: conjunctivae normal Pupils: Equal, round and reactive pupils present and Pupil accommodation reflex normal Direct Ophthalmoscopy: normal light reflex Neck Neck: No lymphadenopathy Thyroid: Thyroid normal Chest Chest palpation & inspection: normal inspection of the chest Resp Effort & Inspection: normal respiratory effort and no audible wheezes Auscultation: clear to auscultation bilaterally, no crackles, no wheezes and lung sounds not diminished Cardio Rate: regular rate Rhythm: regular rhythm Peripheral pulses: radial pulses present and dorsalis pedis present GI Palpation (GI): no masses Auscultation: normal bowel sounds and normoactive bowel sounds Rectal Exam - Female: deferred Skin General skin exam: no rashes or lesions noted Rashes: no rashes Neuro General: No confusion Cranial nerves: Yes Equal, round and reactive pupils present and Yes Normal hearing present Cognition (Neuro): normal cognition Gait exam (Neuro): Normal gait present Motor exam (neuro): 5/5 motor strength present throughout Deep tendon reflexes (DTR's): Right brachioradialis reflex intensity grade: 2+, Left brachioradialis reflex intensity grade: 2+, Right patellar reflex intensity grade: 2+ and Left patellar reflex intensity grade: 2+ Extrem General: No edema Coding Level of Care Code Est Pt Prev Care 40-64y(42936) Diagnoses Annual physical exam Z00.00 Cholelithiasis K80.20 Obesity (BMI 30-39.9) E66.9 Impaired glucose tolerance R73.02 Colon cancer screening Z12.11 Additional Codes TITA-7 Assessment Billing - TITA-7 Assessment Tool: TITA-7 Assessment 39666 ([id number]) PHQ-9 - 34572 - PHQ-9 Billing: Yes ([id number]) Assessment & Plan Assessment & Plan (1) Annual physical exam: Code(s): Z00.00 - Encounter for general adult medical examination without abnormal findings Category: Medical Plan: Patient is advised to eat healthy, keep well hydrated, keep active and have adequate sleep. (2) Cholelithiasis: Comment: August 2020 Code(s): K80.20 - Calculus of gallbladder without cholecystitis without obstruction Category: Medical Plan: Low-fat diet and exercise (3) Obesity (BMI 30-39.9): Code(s): E66.9 - Obesity, unspecified Category: Medical Plan: Diet and exercise (4) Impaired glucose tolerance: Code(s): R73.02 - Impaired glucose tolerance (oral) Category: Medical Plan: Decrease the amount of carbohydrate intake, pasta, bread, rice and potatoes are all sugar and that is aside from all the sweet stuff, remember that fruits are good but they are Sweet also. (5) Colon cancer screening: Code(s): Z12.11 - Encounter for screening for malignant neoplasm of colon Category: Medical Plan History of Present Illness The patient is a 54-year-old female presenting for a physical exam and wellness visit. She has a history of obesity, with a recent 6-pound weight gain since December 2023. Her medical history includes hepatic steatosis, gastroesophageal reflux disease (GERD), and cholelithiasis. The patient underwent a colonoscopy in November 2018, which revealed serrated polyps. She was advised to follow up in five years, but a referral was made to ensure appropriate follow-up due to the polyp findings. Her last blood work in August 2023 showed normal blood count, electrolytes, renal function, and liver function tests. However, her blood glucose was mildly elevated, though her hemoglobin A1c remained normal. Her LDL cholesterol was 64 mg/dL in 2022, and her vitamin B12, folic acid, vitamin D, and thyroid levels were within normal limits. The patient denies any new diagnoses or surgeries since her last visit. She does not consume alcohol, smoke cigarettes, or use recreational drugs. She reports occasional dizziness when lying down, which resolves quickly, and occasional heartburn. Health Maintenance - Mammogram up to date as of May 2024 - Colonoscopy performed in November 2018 with polyp findings, follow-up recommended in five years - Tetanus vaccination up to date - Blood work in August 2023 showed normal blood count, electrolytes, renal function, and liver function tests - Blood glucose mildly elevated, normal hemoglobin A1c - LDL cholesterol of 64 mg/dL in 2022 - Vitamin B12, folic acid, vitamin D, and thyroid levels within normal limits Social History - Denies alcohol consumption, smoking, and recreational drug use - Reports occasional dizziness when lying down, resolving quickly - Reports occasional heartburn Review of Systems - General: Denies fever, chills, or weight loss - Cardiovascular: Denies chest pain, palpitations, or syncope - Respiratory: Denies dyspnea, cough, or wheezing - Gastrointestinal: Reports occasional heartburn; denies nausea, vomiting, or constipation - Neurological: Reports occasional dizziness when lying down, resolving quickly; denies headaches or balance issues - Genitourinary: Denies dysuria, hematuria, or nocturia Physical Exam General: Cooperative, healthy appearing, comfortable, no acute distress and well developed Orientation: Patient oriented x3 Limitations: No limitations Head: Normal to inspection Ears: Hearing grossly normal bilaterally Nose: Normal external nose present Face and sinus: Normal facial exam Eyes: Appearance normal, both eyes and all related structures Neck: Normal visual inspection and Yes full ROM Respiratory: Normal respiratory effort and able to speak in complete sentences. Clear to auscultation bilaterally Cardiovascular: Regular rate and rhythm. Normal S1 and S2 GI: Normal to inspection. Soft to palpation and nontender Skin: No rashes or lesions noted, but patient has noticed a few more spidery veins on legs Neuro: Patient oriented x3 Extremities: Normal to inspection, but patient has noticed a few more spidery veins on legs Results - Labs: Normal blood count, electrolytes, renal function, and liver function tests as of August 2023 - Labs: Mildly elevated blood glucose, normal hemoglobin A1c - Labs: LDL cholesterol of 64 mg/dL in 2022 - Labs: Vitamin B12, folic acid, vitamin D, and thyroid levels within normal limits Plan The patient will continue with her current wellness plan, which includes a no-fat diet and regular exercise to manage her weight and hepatic steatosis. A referral to a bat carrier is made to follow up on the serrated colonic polyp findings from the 2019 colonoscopy. Blood work will be repeated to monitor her mildly elevated blood glucose levels, with a focus on fasting blood glucose. The patient is advised to maintain her current medication regimen, including calcium, vitamin D, and supplements. She is encouraged to inquire about the shingles vaccine at her pharmacy, as it is recommended for her age group. The patient is reminded to prop her legs up when sitting to manage varicose veins and to consider compression stockings if necessary. Patient was informed and verbally consented to the use of an ambient scribe for clinic note documentation during this visit. Discussion Notes During the visit, I discussed the importance of maintaining a no-fat diet and regular exercise to manage the patient's weight and hepatic steatosis. We reviewed the need for a follow-up with a bat carrier regarding the serrated colonic polyp findings from her 2019 colonoscopy. I recommended repeating blood work to monitor her mildly elevated blood glucose levels, emphasizing the importance of fasting blood glucose. I advised her to maintain her current medication regimen, including calcium, vitamin D, and B12 supplements. We discussed the shingles vaccine, and I encouraged her to inquire about it at her pharmacy. I also provided guidance on managing varicose veins by propping her legs up when sitting and considering compression stockings if necessary. Patient Instructions - Continue with a no-fat diet and regular exercise. - Follow up with a bat carrier for the serrated colonic polyp. - Repeat blood work to monitor blood glucose levels. - Maintain current medication regimen, including calcium, vitamin D, and B12 supplements. - Inquire about the shingles vaccine at the pharmacy. - Prop legs up when sitting to manage varicose veins and consider compression stockings if necessary. Orders: Orders Thyroid Stimulating Hormone Today R73.02 - Impaired glucose tolerance (oral) Vitamin B12 and Folate Today R73.02 - Impaired glucose tolerance (oral) Hemoglobin A1c Today R73.02 - Impaired glucose tolerance (oral) Comprehensive Met. Panel Today R73.02 - Impaired glucose tolerance (oral) Complete Blood Count Auto Diff Today R73.02 - Impaired glucose tolerance (oral) Lipid Panel Today E78.00 - Pure hypercholesterolemia, unspecified, R73.02 - Impaired glucose tolerance (oral) Vitamin D 25-OH Total Today R73.02 - Impaired glucose tolerance (oral) Free T4 (Free Thyroxine) Today R73.02 - Impaired glucose tolerance (oral) Referrals Gastroenterology Referral Z12.11 - Encounter for screening for malignant neoplasm of colon
== END 2024-09-08 15:45 | disposition home or self-care (01) ==
LOC: HO.HMCH 14:51
PROVIDERS: PCP Internal Medicine; Visit Provider Internal Medicine
DX: Z00.00 Encounter for general adult medical examination without abnormal findings (principal); K80.20 Calculus of gallbladder without cholecystitis without obstruction; E66.9 Obesity, unspecified; Z68.33 Body mass index [BMI] 33.0-33.9, adult; R73.02 Impaired glucose tolerance (oral); Z12.11 Encounter for screening for malignant neoplasm of colon

== ENCOUNTER → 2024-09-08 14:50 | Outpatient (BNVA) | payer BC, SELFPAY | PROVIDERS: PCP Internal Medicine; Visit Provider Internal Medicine | DX: Z00.00 Encounter for general adult medical examination without abnormal findings (principal); K80.20 Calculus of gallbladder without cholecystitis without obstruction; E66.9 Obesity, unspecified; Z68.33 Body mass index [BMI] 33.0-33.9, adult; R73.02 Impaired glucose tolerance (oral); Z13.31 Encounter for screening for depression; Z13.39 Encounter for screening examination for other mental health and behavioral disorders | CPT/HCPCS: 96127 ==

== ENCOUNTER 2025-01-10 08:04 | Outpatient (AMB) | payer BC, SELFPAY ==
--- NOTE | 2025-01-10 08:22 | A.OFFVIS_ITS ---
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 Currently not sexually active. Denies any vaginal dryness or irritation. Attempting to eat a healthy diet with calcium and vitamin D and stays active with exercise. Last pap smear; 2020, negative. Last mammogram; 2024. Denies any family history of breast, ovarian or colon cancer. [facility] Medical History Lichen sclerosus Shingles Migraines Fatty liver Cholelithiasis GERD (gastroesophageal reflux disease) Surgical History No pertinent past surgical history Family History Son Acute depression Mother Diabetes Brother Diabetes Maternal Grandfather No problems noted. Maternal Uncle CVA (cerebral vascular accident) Other Mental health disorder Substance use disorder Social History Housing: House Alcohol intake: never Patient Tobacco Use Status: Never used Tobacco Tobacco use type: Cigarette e-Cigarette/Vaping Use: Never Used Second Hand Smoke Exposure: No service: No Current occupational status: employed Gender identity: Female Cognitive needs: No Hearing needs: No Vision needs: Yes Female Reproductive History Menstrual Total pregnancies: 0 Date of last pap smear: 07/05/20 (neg pap and hpv) Date of Mammogram: 06/16/24 (Birad 1) Review of Systems Const All systems reviewed & are unremarkable except as noted in HPI and below Reports as per HPI Eyes Reports no additional complaints ENT Reports no additional complaints Card Reports no additional complaints Resp Reports no additional complaints GI Reports as per HPI and Reports no additional complaints Reports as per HPI Musc Reports no additional complaints Skin/Breast Reports as per HPI Neuro Reports no additional complaints Psych Reports no additional complaints Endo Reports no additional complaints Jalen/Lymph Reports no additional complaints Aller/Immun Reports no additional complaints Physical Exam Vital Signs: Last Vital Signs BP 110/74 01/10/25 08:23 BMI result Body Mass Index 33.1 Const General: cooperative, healthy appearing, no acute distress, well developed and alert Orientation/consciousness: patient oriented x3 HEENT Head: Yes normal to inspection Eyes General: appearance normal, both eyes and all related structures Neck Neck: Yes normal visual inspection Thyroid: Thyroid normal Chest Chest palpation & inspection: normal inspection of the chest and other (no puc kering, dimpling, peau de orange, retraction, discharge, masses) Breast/axilla inspection: normal inspection of the breasts Breast/axilla palpation: normal palpation of the breasts Resp Effort & Inspection: normal respiratory effort GI Inspection: Yes normal to inspection Palpation (GI): Soft to palpation Rectal Exam - Female: deferred General: Yes bladder normal to palpation External Female Exam: normal external appearance and normal appearance of the urethra Speculum Exam - Vagina: normal appearance of the vagina, normal palpation, normal vaginal discharge and vagina atrophic Speculum Exam - Cervix: normal appearance of the cervix and normal palpation Bimanual exam- vagina & uterus: normal bimanual exam, normal palpation, uterine size normal, bladder normal to palpation, normal palpation and non-tender Bimanual Exam- Adnexa, other: no masses Skin General skin exam: no rashes or lesions noted Rashes: no rashes Neuro General: patient oriented x3 Cognition (Neuro): normal cognition Extrem General: Yes normal to inspection Psych Attitude: cooperative Thought process: Normal thought process present Assessment & Plan Assessment & Plan (1) Encounter for well woman exam with routine gynecological exam: Code(s): Z01.419 - Encounter for gynecological examination (general) (routine) without abnormal findings Category: Medical Plan Discussed: Current recommendations for pap smears per ASCCP guidelines. Breast awareness, periodic self breast exams and yearly mammogram. Maintain a healthy lifestyle, well balanced diet including Calcium 1,200 mg and Vitamin D 600 IU daily, and routine exercise. Contact the office with any postmenopausal bleeding. Patient verbalizes understanding and agrees to the plan of care. She was given opportunity to ask questions and all questions were answered to the best of my ability. RTO in 1 year for annual rn palliative care exam. This note is constructed using voice recognition software. While every effort has been made to ensure accuracy, administrative support coordinator errors may have been included. Coding Level of Care Code Est Pt Prev Care 40-64y(15051) Diagnoses Encounter for well woman exam with routine gynecological exam Z01.419
[2025-01-10 08:23] VITALS: BP 110/74; BMI 33.1
--- OUTSIDE RECORDS SUMMARY | 2025-01-10 15:32 | XMS_ITS | Clinical Summary ---
Author Organization [facility] Address [address] [place] [phone] Phone Care Team Providers Care Fiscal Analyst Name Role Phone Ban Travis MD Primary Care Provider Allergies No known active allergies Medications No known medications Active Problems No known active problems Immunizations Immunization Administration Dates Next Due COVID-19 (Pre-12/14) Moderna Vaccine, mRNA, PF 06/30/2021,04/04/2020,03/12/2020,2020 Social History Tobacco Use Types Packs/Day Years Used Date Smoking Tobacco: Never Assessed Education Answer Date Recorded Are you interested in more education? Not on rose marie e 06/20/2022 Are you concerned about learning? Not on file 06/20/2022 No 06/20/2022 No 06/20/2022 Digital Access Answer Date Recorded No 07/19/2022 No 07/19/2022 Reliable internet access at home? Not on file 07/19/2022 Device with a working camera? Not on file Comments Unknown Sex and Gender Information Value Date Recorded Sex Assigned at Not on file Legal Sex Female 10:52 AM EST Gender Identity Not on file Sexual Orientation Not on file Last Filed Vital Signs Vital Sign Reading Time Taken Comments Blood Pressure 131/80 03/23/2024 9:50 AM EST Pulse 71 03/23/2024 9:50 AM EST Temperature 36.8 C (98.2 F) 03/23/2024 9:50 AM EST Respiratory Rate 16 03/23/2024 9:50 AM EST Oxygen Saturation 100% 03/23/2024 9:50 AM EST Inhaled Oxygen Concentration - - Weight 88.9 kg (196 lb) 03/05/2022 11:00 AM EST Height 167.6 cm (5' 6 ) 03/05/2022 11:00 AM EST Body Mass Index 31.64 03/05/2022 11:00 AM EST Plan of Treatment Health Maintenance Due Date Last Done Comments LIPID PANEL 1968 DEPRESSION SCREENING 1980 SMOKING Hx and SMOKELESS TOBACCO SCREENING 01/04/1981 HEPATITIS C SCREENING 01/04/1986 HIV ONE-TIME SCREENING (18-65 YEARS) 01/04/1986 PAP SMEAR 01/04/1989 SCREENING FOR DIABETES 01/04/2003 MAMMOGRAM 2008 COLOGUARD 01/04/2013 COLONOSCOPY 01/04/2013 COLORECTAL CANCER SCREENING 01/04/2013 FIT TEST 01/04/2013 FOBT 01/04/2013 SIGMOIDOSCOPY 01/04/2013 VIRTUAL COLONOSCOPY 01/04/2013 PNEUMOCOCCAL VACCINES (50+ years) (1 of 1 - PCV) 01/04/2018 ZOSTER VACCINES (1 of 2) 01/04/2018 INFLUENZA VACCINE (#1) 2024 , 01/10/2021, 11/27/2016 COVID-19 VACCINE ( season) 2024 12/27/2021, 06/30/2021, 01/10/2021, Additional history exists Adult Td,Tdap Booster 08/28/2032 08/28/2022, 011 RSV VACCINE (1 - 1-dose 75+ series) 01/04/2043 HEPATITIS A VACCINES Aged Out No long er eligible based on patient's age to complete this topic HIB VACCINES Aged Out No longer eligi ble based on patient's age to complete this topic IPV VACCINES Aged Out No longer eligi ble based on patient's age to complete this topic MENINGOCOCCAL VACCINES (ACWY) Aged Out No longer eligible based on patient's age to complete this topic MENINGOCOCCAL VACCINES (B) Aged Out N o longer eligible based on patient's age to complete this topic Medical Devices Not on file [facility] BL[facility] CROSS OUT OF STATE PPO BLUE CROSS OUT OF STATE PPO [place] [address] PPO Member Subscriber Plan / Payer (Ef fective 2022-Present) Name:Rachel Jesus Relation to Subscriber:Spouse Name:ALEXANDRE JESUS Date of :1900 (Home) Address: [address] [place] [address] Payer ID:[id number] (NAIC) Type:PPO Address: [phone] [place] [address] [place] PPO BLUE CROSS OUT OF STATE PPO BLUE CROSS OUT OF STATE PPO [place] PPO Member Subscriber Plan / Payer (Ef fective 2022-Present) Name:Rachel Jesus Relation to Subscriber:Spouse Name:ALEXANDRE JESUS Date of :1900 (Home) Address: [address] [place] [address] Payer ID:[id number] (NAIC) Type:PPO Address: [phone] PPO Care Teams Fiscal Analyst Relationship Specialty Start Date End Date Ban Travis MD [address] [place] [id number] PCP - General Internal Medicine 03/05/22 Additional Source Comments The information contained in this document represents components of the legal health record. It is not the complete legal health record.[facility]
== END 2025-01-10 09:46 | disposition home or self-care (01) ==
LOC: HO.HWS 08:05
PROVIDERS: PCP Internal Medicine; Visit Provider Advanced Practice Midwife
DX: Z01.419 Encounter for gynecological examination (general) (routine) without abnormal findings (principal)
CPT/HCPCS: 99396; 99459